=== PATIENT | female | born 1955 | race Two or more races ===

== ENCOUNTER 2022-06-17 00:38 | Emergency (ER) | payer SELFPAY ==
[~2022-06-17] VITALS: Ht 157.5 cm; Wt 77.0 kg
[2022-06-17] MEDS ORDERED: HYDROCODONE/ACETAMINOPHEN 10/325MG TABLET PO ONE (01:15)
[2022-06-17 01:40] VITALS: BP 116/53
== END 2022-06-17 01:42 | disposition home or self-care (01) ==
LOC: ER 00:38
DX: K91.840 Postprocedural hemorrhage of a digestive system organ or structure following a digestive system procedure (principal); I10 Essential (primary) hypertension
CPT/HCPCS: 99283